=== PATIENT | male | born 1950 | race Caucasian/White ===

== ENCOUNTER 2016-07-18 21:56 | Emergency (ER) | payer OTHER ==
[2016-07-18 22:01] VITALS: TEMP 97.5
[2016-07-18 22:07] VITALS: BMI 31.1
[2016-07-19] MEDS ORDERED: GLUCAGON 1 MG VIAL IV ONE (00:12)
[2016-07-19] MEDS ORDERED: SODIUM CHLORIDE 0.9% 3 ML FLUSH FLUSH PRN (00:12)
[2016-07-19] MEDS ORDERED: NS 1,000 ML IV ONE (00:13)
--- NOTE | 2016-07-19 00:16 | EDPRACDOC ---
- General Information Chief Complaint: Forearm Pain Stated Complaint: DYSPHAGIA Time Seen by Provider: 07/19/16 00:08 Information Source: Patient, Family Home Medications: Home Medications Pantoprazole Sodium [Protonix] 1 tab PO DAILY #30 tab 07/19/16 Allergies/Adverse Reactions: Allergies Allergy/AdvReac Type Severity Reaction Status Date / Time No Known Allergies Allergy Verified 07/18/16 22:01 - History of Present Illness Onset: 1230 HPI: PT PRESENTS WITH NAUSEA, DROOLING, AND INABILITY TO TOLERATE ORALS SINCE EATING A PIECE OF HAM AT 1230 TODAY. Foreign Body Context: Reports: Ingestion Foreign Body: Food Location of Possible Foreign Body: Esophagus Associated Signs & Symptoms: Reports: Drooling, Swallowing Difficulty ED Past Medical History - History Reviewed Yes Nurses notes reviewed and agree except as marked - Patient Medical History Cardiac History: Reports: Hypertension Psychological History: Denies: Depression Surgical History: Reports: Appendectomy - Social Medical History Lives With: Spouse Lives In: Home EDM Review of Systems - Review of Systems ROS Negative Except as Marked: Yes All systems reviewed and were negative except as marked Constitutional: negative: Fever Mouth: Drooling Respiratory: negative: Shortness of Breath Cardiovascular: negative: Chest Pain Gastrointestinal: Nausea, Vomiting. negative: Pain - Physical Exam Constitutional: Alert Oriented to: Time, Person, Place Last recorded Vital Signs: Last Vital Signs Temp 97.5 F 07/18/16 22:01 Pulse 73 07/18/16 23:59 Resp 19 07/18/16 23:59 BP 140/71 07/18/16 23:59 Pulse Ox 93 07/18/16 23:59 Oxygen Pulse Oxygen Saturation 93 O2 Device Room Air Oxygen Flow Rate Fraction of Inspired Oxygen ( FIO2) - HEENT Head: negative: Deformity, Laceration Eye Exam: negative: Conjunctival Injection, Pale Conjunctiva Oropharynx: negative: Membranes Dry Nose: negative: Congestion, Discharge Neck: negative: Limited ROM - Respiratory/Cardiovascular Respiratory: Normal - CTA. negative: Accessory Muscle Use, Diminished, Tachypnea Cardiovascular: negative: Bradycardia, Tachycardia, Irregular - Musculoskeletal Extremities: Radial Pulse (PALPABLE) - Integumentary Skin: Warm, Dry. negative: Rash - Neurologic Memory Impaired: Normal Motor Function: Normal Mood Description: Anxious, Appropriate Thought: Coherent Perception: Normal - Results 07/19/16 00:43 07/19/16 00:43 Decision Time to Discharge: 04:50 - Departure Yes I personally saw and evaluated the patient. Disposition: Home Condition: Improved Final Diagnosis: Esophageal foreign body Qualifiers: Encounter type: initial encounter Qualified Code(s): T18.108A - Unspecified foreign body in esophagus causing other injury, initial encounter Ulcer of esophagus Qualifiers: Esophageal ulcer bleeding: without bleeding Qualified Code(s): K22.10 - Ulcer of esophagus without bleeding Instructions: Esophageal Foreign Body (ED) Education/Counseling Given To: Patient, Family Member Education/Counseling Given Regarding: Diagnosis, Treatment, Prognosis, Follow Up Referrals: Alex Merino MD [Primary Care Provider] - Call for Appointment Prescriptions: Pantoprazole Sodium [Protonix] 1 tab PO DAILY #30 tab Additional Instructions: PLEASE MAINTAIN A SOFT MECHANICAL DIET. NO CHEWED FOODS.
[2016-07-19 00:57] LABS: AUTOMATED BASOPHIL 0.4 % (0-2); AUTOMATED EOSINOPHIL 1.7 % (0-5); AUTOMATED LYMPH 17.5 % (17-44); AUTOMATED MONOCYTE 6.9 % (3-10); AUTOMATED NEUTROPHIL 73.5 % (45-76); MPV 11.4 fL (7.4-10.4)
[2016-07-19 01:09] LABS: BLOOD UREA NITROGEN 16 MG/DL (9-20); CALCIUM 9.2 MG/DL (8.4-10.2); CALCULATED OSMOLALITY 282 MOs/Kg (270-290); CHLORIDE 105 mEq/L (98-107); GLUCOSE 106 MG/DL (70-99); SODIUM LEVEL 146 mEq/L (137-146); TOTAL PROTEIN 8.8 G/DL (6.3-8.2)
[2016-07-19] MEDS ORDERED: FENTANYL 100 MCG/2 ML VIAL ONE (03:14)
[2016-07-19] MEDS ORDERED: MIDAZOLAM 5 MG/5 ML VIAL ONE (03:14)
[2016-07-19 04:56] VITALS: BP 138/87; PULSE 72
[2016-07-19] MEDS ORDERED: SODIUM CHLORIDE 0.9% 3 ML FLUSH FLUSH SCH (06:00)
--- NOTE | 2016-07-19 16:59 | HIMOP ---
DATE OF PROCEDURE: 07/18/2016 PROCEDURE: Esophagogastroduodenoscopy. LOCATION: Outpatient Emergency Room. INDICATION FOR PROCEDURE: The patient with food bolus in the esophagus. INSTRUMENT: Olympus video upper endoscope. SEDATION: 5 mg of Versed, 50 mcg of fentanyl intravenously, topical Cetacaine spray. DESCRIPTION OF PROCEDURE: After topical anesthesia and intravenous sedation, the endoscope was passed without difficulty into the esophagus. A large food bolus was present in the distal esophagus, which was pushed easily into the stomach. There was a 1 cm ulceration present at the EG junction that appeared benign. There was mild narrowing and edema there, but no obvious stricture. The stomach was entered. The stomach, duodenal bulb, and duodenal were all normal. Endoscope withdrawn. The patient tolerated the procedure well. IMPRESSION: 1. Food bolus in the esophagus. 2. Esophageal ulceration. RECOMMENDATIONS: 1. The patient should remain on proton pump inhibitors indefinitely. 2. Very soft diet until I have a chance to recheck this area and do possible dilation in the near future. 3. The patient will follow with me in 1-2 weeks in my office. CPT: 78566 [id number] MTDD
== END 2016-07-19 05:20 | disposition home or self-care (01) ==
LOC: ED 21:56 → EDMC 07-19 05:20
DX: T18.128A Food in esophagus causing other injury, initial encounter (principal); K22.10 Ulcer of esophagus without bleeding; X58.XXXA Exposure to other specified factors, initial encounter
CPT/HCPCS: 36415; 43247; 80053; 85025; 96361; 96374; 99283; J1610; J2250; J3010